=== PATIENT | male | born 1950 | race Caucasian/White ===

== ENCOUNTER 2018-05-23 16:56 | Emergency (ER) | payer MEDICARE, OTHER ==
[~2018-05-23] VITALS: Ht 177.8 cm; Wt 97.5 kg
[2018-05-23 17:26] VITALS: BP 182/105
[2018-05-23] MEDS ORDERED: KETOROLAC TROMETHAMINE INJ 60 MG/2 ML VIAL IM ONE (17:30)
[2018-05-23] MEDS ORDERED: KETOROLAC TROMETHAMINE INJ 30 MG/ML VIAL ONE (17:38)
== END 2018-05-23 18:28 | disposition home or self-care (01) ==
LOC: ER 16:59
DX: S43.422A Sprain of left rotator cuff capsule, initial encounter (principal); I10 Essential (primary) hypertension; Z60.2 Problems related to living alone; Z91.018 Allergy to other foods; W18.39XA Other fall on same level, initial encounter; Y93.89 Activity, other specified; Y92.89 Other specified places as the place of occurrence of the external cause; Y99.8 Other external cause status
CPT/HCPCS: 73030; 96372; 99283; A4606; J1885